=== PATIENT | female | born 1960 | race Caucasian/White ===

== ENCOUNTER → 2016-11-05 | Outpatient (CLI) | payer OTHER | LOC: FIMAGING 13:03 | PROVIDERS: ATTEND Internal Medicine | DX: Z12.31 Encounter for screening mammogram for malignant neoplasm of breast (principal) | CPT/HCPCS: G0202 ==

== ENCOUNTER 2017-07-19 18:39 | Observation (INO) | payer OTHER ==
--- NOTE | 2017-07-19 19:53 | EDPHY ---
H & P Stated Complaint: Fever for the last 3-4day and was seen at urgent care Time Seen by Provider: 07/19/17 19:53 HPI/ROS: CHIEF COMPLAINT: Fever HISTORY OF PRESENT ILLNESS: The patient presents to the ED for evaluation of a low-grade intermittent fever for the past 3-4 days. The patient's only other symptom has been some darkening in the color of her urine. She denies any sore throat, abdominal pain, vomiting, cough, rash or arthralgias. The patient does have a history of autoimmune disease. She does have a history of cardiomyopathy. The patient denies any prior history of liver disease. The patient denies any significant travel outside the [place]. The patient reportedly was seen at urgent care and told that her blood pressure and heart rate were low prompting her visit to the emergency department today. REVIEW OF SYSTEMS: A comprehensive 10 point review of systems is otherwise negative aside from elements mentioned in the history of present illness. Source: Patient Exam Limitations: No limitations - Personal History Current Tetanus/Diphtheria Vaccine: Yes Current Tetanus Diphtheria and Acellular Pertussis (TDAP): Yes - Medical/Surgical History Hx Asthma: Yes Hx Chronic Respiratory Disease: No Hx Diabetes: No Hx Cardiac Disease: Yes Hx Renal Disease: No Hx Cirrhosis: No Hx Alcoholism: No Hx HIV/AIDS: No Hx Splenectomy or Spleen Trauma: No Other PMH: takotsubo's, hypothyroidism - Social History Smoking Status: Never smoked - Physical Exam Exam: General Appearance: Alert, no distress Eyes: Pupils equal and round no pallor or injection ENT, Mouth: Mucous membranes moist Respiratory: There are no retractions, lungs are clear to auscultation Cardiovascular: Regular rate and rhythm Gastrointestinal: Abdomen is soft and nontender, no masses, bowel sounds normal Neurological: A&O, normal motor function, normal sensory exam, normal cranial nerves Skin: Warm and dry, no rashes Musculoskeletal: Neck is supple nontender Extremities: symmetrical, full range of motion Constitutional: Initial Vital Signs Temperature (C) 36.7 C 07/19/17 19:09 Heart Rate 67 07/19/17 19:09 Respiratory Rate 16 07/19/17 19:09 Blood Pressure 113/66 07/19/17 19:09 O2 Sat (%) 96 07/19/17 19:09 O2 Delivery Mode Room Air Allergies/Adverse Reactions: gluten [Gluten] Allergy (Intermediate, Verified 07/19/17 19:12) Abdominal Cramping eggplant Allergy (Intermediate, Uncoded 07/19/17 19:12) Itching Home Medications: Medication Instructions Recorded Calcium Carbonate [Oyster Shell 1,000 mg PO DAILY 09/06/15 Calcium 500 mg (*)] Cholecalciferol Vit D3 [Vitamin D3 2,000 units PO DAILY 09/06/15 (*)] Cyanocobalamin [Vitamin B12 (*)] 1,000 mcg PO DAILY 09/06/15 Diltiazem Cd [Cardizem ER 120 MG 120 mg PO HS 09/06/15 (*)] Estradiol [Estrace Vaginal (*)] 0 gm VAG SUWE 09/06/15 Levothyroxine [Synthroid 137 mcg 137 mcg PO DAILY06 09/06/15 (*)] Multivitamins [Multivitamin (*)] 1 each PO DAILY 09/06/15 [place]-3 Fatty Acids [Fish Oil 1000 1,000 mg PO BID 09/06/15 mg (*)] Pimecrolimus [Elidel] 1 ranjana TP BID 09/06/15 Medical Decision Making ED Course/Re-evaluation: The patient is afebrile, well-appearing, non-hypotensive and not tachycardic. The patient does have evidence of urinary tract infection. She had an IV established. She did receive IV ceftriaxone. Additionally, the patient has renal insufficiency with a creatinine of 1.9. The patient did received 2 L of normal saline. I recheck her creatinine and was 1.8. I re-evaluated the patient several times. At 11:00 p.m. She continues to feel somewhat fatigued in generally weak. We have not noticed a fever in the emergency department. She has not had hypotension or tachycardia. In the setting of her urinary tract infection and acute renal failure I do feel she should be admitted to the hospital for observation and fluid rehydration this evening. I did obtain blood cultures on the patient after she received IV ceftriaxone once the decision to admit her to the hospital was made. Consultation was made with the hospitalist service at 11:00 p.m.. She will be admitted for observation this evening. I discussed the case with Dr. Dutta who will admit the patient. Differential Diagnosis: Differential diagnosis considered includes viral syndrome, urinary tract infection, dehydration, renal failure, metabolic abnormality - Data Points Laboratory Results: Laboratory Results 07/19/17 21:00 07/19/17 20:37 07/19/17 07/19/17 07/19/17 21:00 20:46 20:37 WBC 12.97 10^3/uL H 10^3/uL (3.80-9.50) RBC 4.08 10^6/uL L 10^6/uL (4.18-5.33) Hgb 12.4 g/dL L g/dL (12.6-16.3) Hct 36.2 % L % (38.0-47.0) MCV 88.7 fL fL (81.5-99.8) MCH 30.4 pg pg (27.9-34.1) MCHC 34.3 g/dL g/dL (32.4-36.7) RDW 13.7 % % (11.5-15.2) Plt Count 205 10^3/uL 10^3/uL (150-400) MPV 9.9 fL fL (8.7-11.7) Neut % (Auto) 80.9 % H % (39.3-74.2) Lymph % (Auto) 7.6 % L % (15.0-45.0) [place] % (Auto) 10.6 % % (4.5-13.0) Eos % (Auto) 0.1 % L % (0.6-7.6) Baso % (Auto) 0.3 % % (0.3-1.7) Nucleat RBC Rel Count 0.0 % % (0.0-0.2) Absolute Neuts (auto) 10.49 10^3/uL H 10^3/uL (1.70-6.50) Absolute Lymphs (auto) 0.98 10^3/uL L 10^3/uL (1.00-3.00) Absolute Monos (auto) 1.38 10^3/uL H 10^3/uL (0.30-0.80) Absolute Eos (auto) 0.01 10^3/uL L 10^3/uL (0.03-0.40) Absolute Basos (auto) 0.04 10^3/uL 10^3/uL (0.02-0.10) Absolute Nucleated RBC 0.00 10^3/uL 10^3/uL (0-0.01) Immature Gran % 0.5 % % (0.0-1.1) Immature Gran # 0.07 10^3/uL 10^3/uL (0.00-0.10) Sodium 132 mEq/L L mEq/L (135-145) Potassium 4.2 mEq/L mEq/L (3.5-5.2) Chloride 97 mEq/L mEq/L (97-110) Carbon Dioxide 20 mEq/l L mEq/l (22-31) Anion Gap 15 mEq/L mEq/L (8-16) BUN 25 mg/dL H mg/dL (7-23) Creatinine 1.9 mg/dL H mg/dL (0.6-1.0) Estimated GFR 27 Glucose 96 mg/dL mg/dL (70-100) Calcium 9.1 mg/dL mg/dL (8.5-10.4) Total Bilirubin 1.6 mg/dL H mg/dL (0.1-1.4) Conjugated Bilirubin 0.5 mg/dL mg/dL (0.0-0.5) Unconjugated Bilirubin 1.1 mg/dL mg/dL (0.0-1.1) AST 47 IU/L H IU/L (14-46) ALT 62 IU/L H IU/L (9-52) Alkaline Phosphatase 88 IU/L IU/L (38-126) Total Protein 6.9 g/dL g/dL (6.3-8.2) Albumin 3.5 g/dL g/dL (3.5-5.0) Urine Color STEVEN Urine Appearance TURBID Urine pH 5.0 (5.0-7.5) Ur Specific [place] 1.016 (1.002-1.030) Urine Protein 2+ H (NEGATIVE) Urine Ketones NEGATIVE (NEGATIVE) Urine Blood 2+ H (NEGATIVE) Urine Nitrate NEGATIVE (NEGATIVE) Urine Bilirubin NEGATIVE (NEGATIVE) Urine Urobilinogen NEGATIVE EU EU (0.2-1.0) Ur Leukocyte Esterase 3+ H (NEGATIVE) Urine RBC 50-182 /hpf H /hpf (0-3) Urine WBC 50-182 /hpf H /hpf (0-3) Ur Epithelial Cells 1+ /lpf /lpf (NONE-1+) Urine Bacteria 4+ /hpf H /hpf (NONE SEEN) Urine Mucus 1+ /lpf /lpf (NONE-1+) Urine Glucose NEGATIVE (NEGATIVE) 07/19/17 20:37 WBC REJ RBC Not Reported Hgb Not Reported Hct Not Reported MCV Not Reported MCH Not Reported MCHC Not Reported RDW Not Reported Plt Count Not Reported MPV Not Reported Neut % (Auto) Not Reported Lymph % (Auto) Not Reported [place] % (Auto) Not Reported Eos % (Auto) Not Reported Baso % (Auto) Not Reported Nucleat RBC Rel Count Not Reported Absolute Neuts (auto) Not Reported Absolute Lymphs (auto) Not Reported Absolute Monos (auto) Not Reported Absolute Eos (auto) Not Reported Absolute Basos (auto) Not Reported Absolute Nucleated RBC Not Reported Immature Gran % Not Reported Immature Gran # Not Reported Sodium Potassium Chloride Carbon Dioxide Anion Gap BUN Creatinine Estimated GFR Glucose Calcium Total Bilirubin Conjugated Bilirubin Unconjugated Bilirubin AST ALT Alkaline Phosphatase Total Protein Albumin Urine Color Urine Appearance Urine pH Ur Specific [place] Urine Protein Urine Ketones Urine Blood Urine Nitrate Urine Bilirubin Urine Urobilinogen Ur Leukocyte Esterase Urine RBC Urine WBC Ur Epithelial Cells Urine Bacteria Urine Mucus Urine Glucose Medications Given: Discontinued Medications Acetaminophen (Tylenol) 1,000 mg PO EDNOW ONE Stop: 07/19/17 22:22 Last Admin: 07/19/17 22:22 Dose: 1,000 mg Sodium Chloride (Ns) 1,000 mls @ 0 mls/hr IV EDNOW ONE; Wide Open PRN Reason: Protocol Stop: 07/19/17 20:09 Last Admin: 07/19/17 21:22 Dose: 1,000 mls Ceftriaxone Sodium 2 gm/ (Sterile Water) 20 mls @ 300 mls/hr IV EDNOW ONE PRN Reason: Protocol Stop: 07/19/17 21:33 Last Admin: 07/19/17 21:52 Dose: 20 mls Departure - Departure Disposition: [facility] Inpatient Acute Clinical Impression: Dehydration, Renal failure, Cystitis, Fever Condition: Good Referrals: Angelica James MD [Primary Care Provider] - As per Instructions
[2017-07-19] MEDS ORDERED: NS 1,000 ML IV ONE (20:08)
--- NOTE | 2017-07-19 20:25 | CPEKG ---
Heart Rate: 54 RR Interval: 1111 P-R Interval: 200 QRSD Interval: 116 QT Interval: 464 QTC Interval: 440 P [place]: 5 QRS [place]: -8 T Wave [place]: 55 EKG Severity - ABNORMAL ECG - EKG Impression: SINUS RHYTHM EKG Impression: NONSPECIFIC INTRAVENTRICULAR CONDUCTION DELAY Electronically Signed By: Rico Cooper 20-Jul-2017 00:14:17
[2017-07-19 21:07] LABS: PLATELET COUNT 205 10^3/uL (150-400)
[2017-07-19] MEDS ORDERED: cefTRIAXone 2 GM in STERILE WATER INJ 20 ML IV ONE (21:30)
[2017-07-19] MEDS ORDERED: ACETAMINOPHEN 500 MG TAB ONE (21:57)
[2017-07-19] MEDS ORDERED: ACETAMINOPHEN 500 MG TAB PO ONE (22:21)
[2017-07-19] MEDS ORDERED: LORazepam 0.5 MG TAB PO PRN (23:41)
[2017-07-19] MEDS ORDERED: ONDANSETRON 4 MG/2 ML VIAL IVP PRN (23:41)
[2017-07-19] MEDS ORDERED: diphenhydrAMINE 25 MG CAP PO PRN (23:41)
[2017-07-19] MEDS ORDERED: HYDROCODONE/APAP 5/325 TAB PO PRN (23:41)
[2017-07-20 05:39] LABS: PLATELET COUNT 190 10^3/uL (150-400)
[2017-07-20] MEDS: ACETAMINOPHEN 325 MG TAB PO PRN ×2 (07:45→14:07)
[2017-07-20] MEDS: NS 1,000 ML IV SCH ×2 (07:48→16:14)
--- NOTE | 2017-07-20 08:39 | PDGENHP ---
History and Physical - Chief Complaint Fevers chills and rigors, right flank pain - History of Present Illness Source-patient provides history appears reliable. EMR was reviewed and case discussed with ED provider. HPI-this is a very pleasant 57-year-old female with past medical history significant for RA, Elio's thyroiditis, asthma, tox Sri bow cardiomyopathy , HLD, hypertension, celiac disease and CKD with a baseline creatinine of 1.1 who presents to the emergency department today with complaints of several days of progressive fevers chills and now rigors along with developing right flank pain that radiates to her abdomen. Patient reports that her symptoms started approximately 6 days ago. She reports 2 days ago she developed some nausea vomiting without any hematemesis. She denies any melena hematochezia. Since her admission patient has developed some diarrhea. She denies any recent sick contacts. She denies any cough sore throat. She does report some congestion and acutely worsened her chronic rhinorrhea. Patient is not on any immuno modulators or suppressants for her RA. Patient describes her flank pain abdominal pain as intermittent cramping and worse with movement. Patient without a recent history of UTIs last being in her 20s with acute cystitis type symptoms. Patient denies any hematuria. Patient presented earlier to the urgent care center where she was referred to the ED. Patient was noted to be febrile, tachycardic and with concern was for sepsis. Upon arrival to the ED patient's vital signs were within normal limits and she was afebrile. History Information - Allergies/Home Medication List Allergies/Adverse Reactions: gluten [Gluten] Allergy (Intermediate, Verified 07/19/17 19:12) Abdominal Cramping eggplant Allergy (Intermediate, Uncoded 07/19/17 19:12) Itching Home Medications: Calcium Carbonate [Oyster Shell Calcium 500 mg (*)] 1,000 mg PO DAILY 09/06/15 [ Last Taken Unknown] Cholecalciferol Vit D3 [Vitamin D3 (*)] 2,000 units PO DAILY 09/06/15 [Last Taken Unknown] Cyanocobalamin [Vitamin B12 (*)] 1,000 mcg PO DAILY 09/06/15 [Last Taken Unknown ] Diltiazem Cd [Cardizem ER 120 MG (*)] 120 mg PO HS 09/06/15 [Last Taken 09/05/15 ] Estradiol [Estrace Vaginal (*)] 1 ranjana VAG SUWE 09/06/15 [Last Taken 09/04/15] Multivitamins [Multivitamin (*)] 1 each PO DAILY 09/06/15 [Last Taken Unknown] [place]-3 Fatty Acids [Fish Oil 1000 mg (*)] 1,000 mg PO BID 09/06/15 [Last Taken Unknown] Pimecrolimus [Elidel] 1 ranjana TP BID 09/06/15 [Last Taken 09/05/15] Levothyroxine [Synthroid 125 mcg (*)] 125 mcg PO DAILY06 07/20/17 [Last Taken Unknown] Pravastatin Sodium 20 mg PO MWF 07/20/17 [Last Taken Unknown] I have personally reviewed and updated: family history, medical history, social history, surgical history - Past Medical History Additional medical history: RA, Elio's thyroiditis, asthma, Takotsubo's cardiomyopathy, HLD, a height HTN, celiac disease, CKD with creatinine baseline 1.1, endometriosis - Surgical History Additional surgical history: Right wrist repair, right oophorectomy - Family History Additional family history: Diabetes, HTN. Patient brother with a history of transplant liver and kidneys related to HCV) - Social History Smoking Status: Never smoked Alcohol Use: Rarely Drug Use: None Additional social history: Patient lives alone. Cor status is full. Review of Systems Review of Systems: ROS: 10pt was reviewed & negative except for what was stated in HPI & below ( Negative except as noted above.) Physical Exam Physical Exam: Selected Entries 07/19/17 19:09 Blood Pressure Automatic Method Heart Rate 67 Respiratory 16 Rate O2 Sat (%) 96 Temperature (C) 36.7 C Blood Pressure 113/66 Mean Arterial 81 Pressure (MAP) O2 Delivery Room Air Mode Temperature Oral Source Temp Pulse Resp BP Pulse Ox 39.1 C H 78 16 107/73 92 07/20/17 07:27 07/20/17 07:27 07/20/17 07:27 07/20/17 07:27 07/20/17 07:27 Constitutional: uncomfortable (With movement), other (NAD. Patient is lying quietly in bed. She does appear acutely ill but nontoxic. Fatigued.) Eyes: PERRL, anicteric sclera, EOMI Ears, Nose, Mouth, Throat: no oral mucosal ulcers, dry mucous membranes, other ( Nasal congestion), No poor dentition Cardiovascular: regular rate and rhythym, no murmur, rub, or gallop, No systolic murmur, No edema Peripheral Pulses: 2+: dorsalis-pedis (R), dorsalis-pedis (L) Respiratory: no respiratory distress, no rales or rhonchi, clear to auscultation , reduced air movement Gastrointestinal: normoactive bowel sounds, soft, non-tender abdomen, no palpable masses, tenderness (Right mid abdomen), No guarding, No rebound, No distension Genitourinary: no bladder tenderness, other (Right CVA tenderness.), No bruce in urethra Skin: warm, normal color, no rashes or abrasions, other (Patient appears slightly flushed), No rash Musculoskeletal: full muscle strength, other (Moves all extremities.), No generalized weakness Neurologic: AAOx3, sensation intact bilaterally, other (Nonfocal exam.), No weakness, No facial droop Psychiatric: interacting appropriately, not encephalopathic, thought process linear, anxious, other (Pleasant and cooperative.), No depressed Lab Data & Imaging Review 07/20/17 05:31 07/20/17 05:31 WBC 11.33 10^3/uL (3.80-9.50) H 07/20/17 05:31 RBC 3.58 10^6/uL (4.18-5.33) L 07/20/17 05:31 Hgb 10.8 g/dL (12.6-16.3) L 07/20/17 05:31 Hct 31.0 % (38.0-47.0) L 07/20/17 05:31 MCV 86.6 fL (81.5-99.8) 07/20/17 05:31 MCH 30.2 pg (27.9-34.1) 07/20/17 05:31 MCHC 34.8 g/dL (32.4-36.7) 07/20/17 05:31 RDW 13.5 % (11.5-15.2) 07/20/17 05:31 Plt Count 190 10^3/uL (150-400) 07/20/17 05:31 MPV 10.0 fL (8.7-11.7) 07/20/17 05:31 Neut % (Auto) 82.6 % (39.3-74.2) H 07/20/17 05:31 Lymph % (Auto) 5.2 % (15.0-45.0) L 07/20/17 05:31 [place] % (Auto) 11.3 % (4.5-13.0) 07/20/17 05:31 Eos % (Auto) 0.2 % (0.6-7.6) L 07/20/17 05:31 Baso % (Auto) 0.3 % (0.3-1.7) 07/20/17 05:31 Nucleat RBC Rel Count 0.0 % (0.0-0.2) 07/20/17 05:31 Absolute Neuts (auto) 9.37 10^3/uL (1.70-6.50) H 07/20/17 05:31 Absolute Lymphs (auto) 0.59 10^3/uL (1.00-3.00) L 07/20/17 05:31 Absolute Monos (auto) 1.28 10^3/uL (0.30-0.80) H 07/20/17 05:31 Absolute Eos (auto) 0.02 10^3/uL (0.03-0.40) L 07/20/17 05:31 Absolute Basos (auto) 0.03 10^3/uL (0.02-0.10) 07/20/17 05:31 Absolute Nucleated RBC 0.00 10^3/uL (0-0.01) 07/20/17 05:31 Immature Gran % 0.4 % (0.0-1.1) 07/20/17 05:31 Immature Gran # 0.04 10^3/uL (0.00-0.10) 07/20/17 05:31 Sodium 133 mEq/L (135-145) L 07/20/17 05:31 Potassium 3.8 mEq/L (3.5-5.2) 07/20/17 05:31 Chloride 102 mEq/L (97-110) 07/20/17 05:31 Carbon Dioxide 21 mEq/l (22-31) L 07/20/17 05:31 Anion Gap 10 mEq/L (8-16) 07/20/17 05:31 BUN 22 mg/dL (7-23) 07/20/17 05:31 Creatinine 1.5 mg/dL (0.6-1.0) H 07/20/17 05:31 Estimated GFR 36 07/20/17 05:31 Glucose 104 mg/dL (70-100) H 07/20/17 05:31 Calcium 8.4 mg/dL (8.5-10.4) L 07/20/17 05:31 Magnesium 2.2 mg/dL (1.6-2.3) 07/20/17 05:31 Total Bilirubin 1.6 mg/dL (0.1-1.4) H 07/19/17 20:37 Conjugated Bilirubin 0.5 mg/dL (0.0-0.5) 07/19/17 20:37 Unconjugated Bilirubin 1.1 mg/dL (0.0-1.1) 07/19/17 20:37 AST 47 IU/L (14-46) H 07/19/17 20:37 ALT 62 IU/L (9-52) H 07/19/17 20:37 Alkaline Phosphatase 88 IU/L (38-126) 07/19/17 20:37 Total Protein 6.9 g/dL (6.3-8.2) 07/19/17 20:37 Albumin 3.5 g/dL (3.5-5.0) 07/19/17 20:37 Urine Color STEVEN 07/19/17 20:46 Urine Appearance TURBID 07/19/17 20:46 Urine pH 5.0 (5.0-7.5) 07/19/17 20:46 Ur Specific [place] 1.016 (1.002-1.030) 07/19/17 20:46 Urine Protein 2+ (NEGATIVE) H 07/19/17 20:46 Urine Ketones NEGATIVE (NEGATIVE) 07/19/17 20:46 Urine Blood 2+ (NEGATIVE) H 07/19/17 20:46 Urine Nitrate NEGATIVE (NEGATIVE) 07/19/17 20:46 Urine Bilirubin NEGATIVE (NEGATIVE) 07/19/17 20:46 Urine Urobilinogen NEGATIVE EU (0.2-1.0) 07/19/17 20:46 Ur Leukocyte Esterase 3+ (NEGATIVE) H 07/19/17 20:46 Urine RBC 50-182 /hpf (0-3) H 07/19/17 20:46 Urine WBC 50-182 /hpf (0-3) H 07/19/17 20:46 Ur Epithelial Cells 1+ /lpf (NONE-1+) 07/19/17 20:46 Urine Bacteria 4+ /hpf (NONE SEEN) H 07/19/17 20:46 Urine Mucus 1+ /lpf (NONE-1+) 07/19/17 20:46 Urine Glucose NEGATIVE (NEGATIVE) 07/19/17 20:46 EKG additional interpertation: NSR in the 50s. No acute ST changes. QTC is 440. Assessment & Plan Assessment: Acute Pyelo nephritis - UA is quite abnormal. Patient was started on Rocephin. She did not meet any SIRS criteria upon arrival to the emergency department blood cultures were obtained after Rocephin had been infusing. Urine culture is pending. Patient is not on any immunosuppressive agents. Hyponatremia - repeat sodium shows that patient's sodium is slowly increasing. This could be related to hypovolemia versus SIADH. Continue to replace IV fluids and repeated BMP. If no further improvement consider urine studies and further evaluation and/or check a TSH. Patient is not on any diuretics. Dehydration (Acute) - improved. Patient received several L of IV fluid in the emergency department. Hypo tension-patient reports that her normal blood pressures are low 100s to 110s SBP but currently lower than her usual. she also endorse some orthostatic sx. continue with IVF hydration. Fever, chills/rigors (Acute) - patient has remained afebrile since arrival to the floor. Again blood cultures were obtained after Rocephin infuse. She does not meet SIRS criteria at this time. Renal failure (Acute) - acute kidney injury on CKD stage 3. Patient reports her baseline creatinine is 1.1. Creatinine is improving slowly with IV fluid replacement. Anemia likely of chronic disease. Patient without any evidence of active gross bleeding will continue to monitor. Chronic Medical Issues HTN - BP is as noted above HLD Asthma Takotsubo cardiomyopathy Celiac disease FEN - IV fluids as noted above. Electrolytes will be monitored and replaced if needed. Diet as tolerated gluten free. PPX-SCDs. Mobilize. Lovenox if patient should stay additional day but anticipate short hospital stay at this time. Cor status-full. Disposition-patient has been admitted to observation status at this time pending symptom improvement with treatment and follow-up of cultures for appropriate antibiotic at discharge.
[2017-07-20] MEDS ORDERED: ENOXAPARIN 30 MG/0.3 ML SYR SC SCH (09:00)
--- NOTE | 2017-07-20 13:32 | HOSPPROG ---
Hospitalist Progress Note Assessment/Plan: Patient is a 57 y.o female who presented with fevers, chills, rigors, right flank pain. She was admitted earlier this morning by Dr Dutta, came by to f/u with here. *acute pyelonephritis -urine cx pending -Rocephine *Hyponatremia -follow *anemia -repeat labs in a.m. *Hypotension -bp cont to be low this afternoon -her baseline is low, but says she is lower than her baseline -continue iv fluids overnight *fevers, chills, rigors -better w Tylenol *renal failure -follow *HTN -hypotensive; will place parameters as when to hold her calcium federico *HLD -statin Plan: f/u with urine cx in a.m. >30 minutes with f/u care Subjective: Alysha is still having fevers and has some flank pain. Objective: Vital Signs Temp Pulse Resp BP Pulse Ox 37.0 C 66 16 82/51 L 91 L 07/20/17 11:14 07/20/17 11:14 07/20/17 11:14 07/20/17 11:14 07/20/17 11:14 Laboratory Results 07/20/17 05:31 07/20/17 05:31 07/19/17 07/20/17 07/21/17 05:59 05:59 05:59 Intake Total 1500 Balance 1500 - Physical Exam Constitutional: no apparent distress, appears nourished, No not in pain Eyes: PERRL Ears, Nose, Mouth, Throat: hearing normal Cardiovascular: regular rate and rhythym Respiratory: no respiratory distress Gastrointestinal: normoactive bowel sounds Skin: warm, No normal color (pale) Musculoskeletal: full muscle strength, no joint effusions Psychiatric: interacting appropriately ICD10 Worksheet Patient Problems: Problems Problem Status Onset Cystitis Acute Dehydration Acute Fever Acute Renal failure Acute Chest pain Acute
[2017-07-20] MEDS ORDERED: PIMECROLIMUS 1% 30 GM CRTUBE TP SCH (21:00)
[2017-07-20] MEDS ORDERED: DILTIAZEM CD 120 MG CAP PO SCH (21:00)
[2017-07-20] MEDS: IBUPROFEN 600 MG TAB PO PRN (21:51)
[2017-07-20] MEDS: OMEGA-3 FATTY ACIDS 1,000 MG CAP PO SCH (21:51)
[2017-07-20] MEDS: PIMECROLIMUS 1% 30 GM CRTUBE TP SCH (22:12)
[2017-07-21] MEDS: NS 1,000 ML IV SCH ×2 (00:24→08:21)
[2017-07-21 05:53] LABS: PLATELET COUNT 246 10^3/uL (150-400)
[2017-07-21] MEDS ORDERED: LEVOTHYROXINE 125 MCG TAB PO SCH (06:00)
[2017-07-21] MEDS: IBUPROFEN 600 MG TAB PO PRN (07:48)
[2017-07-21] MEDS ORDERED: PRAVASTATIN SODIUM 20 MG TAB PO SCH (08:00)
[2017-07-21] MEDS: OMEGA-3 FATTY ACIDS 1,000 MG CAP PO SCH (08:06)
[2017-07-21] MEDS: PIMECROLIMUS 1% 30 GM CRTUBE TP SCH (08:10)
[2017-07-21] MEDS ORDERED: CYANO/VITAMIN B12 1000 MCG TAB PO SCH (09:00)
[2017-07-21] MEDS ORDERED: ENOXAPARIN 40 MG/0.4 ML SYR SC SCH (09:00)
[2017-07-21] MEDS ORDERED: MULTIVITAMINS 1 EACH TAB PO SCH (09:00)
[2017-07-21] MEDS ORDERED: CALCIUM CARBONATE 500 MG TAB PO SCH (09:00)
[2017-07-21] MEDS ORDERED: CHOLECALCIFEROL VIT D3 1,000 UNITS TAB PO SCH (09:00)
--- NOTE | 2017-07-21 12:51 | HOSPPROG ---
Hospitalist Progress Note Assessment/Plan: Patient is a 57 y.o female who presented with fevers, chills, rigors, right flank pain. *acute pyelonephritis -Rocephi-urine cx shows e coli *Hyponatremia -resolved *anemia -repeat labs in a.m. *Hypotension -better today *fevers, chills, rigors -better w Tylenol *renal failure -follow *HTN -stable *HLD -statin Plan: dc with f/u with Dr James Objective: Vital Signs Temp Pulse Resp BP Pulse Ox 36.2 C 62 16 101/64 92 07/21/17 07:08 07/21/17 07:08 07/21/17 07:08 07/21/17 07:08 07/21/17 07:08 Laboratory Results 07/21/17 05:02 07/21/17 05:02 07/20/17 07/21/17 07/22/17 05:59 05:59 05:59 Intake Total 1500 1500 250 Output Total 200 Balance 1500 1500 50 - Physical Exam Constitutional: no apparent distress, appears nourished, not in pain Eyes: PERRL Ears, Nose, Mouth, Throat: hearing normal Cardiovascular: regular rate and rhythym Respiratory: no respiratory distress Skin: warm Musculoskeletal: full muscle strength, no muscle tenderness Neurologic: AAOx3 Psychiatric: interacting appropriately, not anxious ICD10 Worksheet Patient Problems: Problems Problem Status Onset Cystitis Acute Dehydration Acute Fever Acute Renal failure Acute Chest pain Acute
--- NOTE | 2017-07-21 13:23 | GDS ---
[f rep st] DISCHARGE SUMMARY DISCHARGE DIAGNOSES: 1. Acute pyelonephritis. 2. Hyponatremia. 3. Hypotension. 4. Anemia. 5. Fever with chills and rigors. 6. Renal failure. 7. Hypertension with frequent bouts of hypotension. 8. Hyperlipidemia. HISTORY OF PRESENT ILLNESS: Briefly, Denisha is a 57-year-old female, with a history of takotsubo cardiomyopathy, RA, and Elio's thyroiditis, who presented earlier to urgent care, where she was referred to the emergency department. She was noted to be febrile, tachycardic, and with concern of sepsis. On arrival here, she was much improved. She had a urinalysis and started on ceftriaxone. B lood cultures were obtained after Rocephin had been infusing. She is not on any immunosuppressive ag ents. She improved throughout her stay. Fevers have resolved. Her urine culture grew out E coli, a s well as strep, which is likely a skin contaminant. She will be discharged on Levaquin and follow u p with Dr. James. HOSPITAL COURSE: 1. Acute pyelonephritis, much improved. Will be discharged home on Levaquin. 2. Hyponatremia, improved. 3. Anemia. Further followup with Dr. James. 4. Hypotension. She said she her blood pressure runs low and is asymptomatic. 5. Fever, chills and rigors, resolved. 6. Renal failure, stable. 7. Hypertension. She is on a calcium channel federico for her takotsubo cardiomyopathy. She knows w riri to hold it at home. 8. Hyperlipidemia, on statin therapy. DISCHARGE CONDITION: Stable. VITAL SIGNS: Blood pressure is 101/64, heart rate is 62, respiratory rate is 16, O2 sats on room air 92%, temperature is 36.2 Celsius. MEDICATIONS AT DISCHARGE: Please see the EMR. DISCHARGE INSTRUCTIONS: 1. Followup with Dr. James. Recommend if she develops any fever or chills, return to the ER. 2. To take it easy while on Levaquin; it can affect her tendons, especially the Achilles tendon. In addition, I will call and let Dr. James know of the patient's admission and discharge. /[id number]/MODL
[2017-07-21 13:33] VITALS: BP 101/64; PULSE 62; RESP 16; TEMP 97.2; O2SAT 92
--- NOTE | 2017-07-21 14:48 | ASMTCMCOM ---
CM Note CM Note Notes: Spoke w/RN, anticipate will dc home independent when medically stable. CM available for any changes. DC Plan: Independent Date Signed: 07/21/2017 02:47 PM Electronically Signed By:Dayami Hayden RN
[2017-07-21] MEDS ORDERED: ESTRADIOL 42.5 GM CRTUBE VG SCH ×2 (15:09→15:16)
== END 2017-07-21 14:30 | disposition home or self-care (01) ==
LOC: F3E 07-20 00:20
PROVIDERS: ADMIT Family Medicine; ATTEND Internal Medicine
DX: N10 Acute pyelonephritis (principal); N17.9 Acute kidney failure, unspecified; N18.3 Chronic kidney disease, stage 3 (moderate); E86.0 Dehydration; E87.1 Hypo-osmolality and hyponatremia; I95.9 Hypotension, unspecified; D64.9 Anemia, unspecified; R50.9 Fever, unspecified; I12.9 Hypertensive chronic kidney disease with stage 1 through stage 4 chronic kidney disease, or unspecified chronic kidney disease; E78.5 Hyperlipidemia, unspecified; I51.81 Takotsubo syndrome
CPT/HCPCS: 93005; 96361; 96374; 99285; G0378; J0696; J1650; J2405

== ENCOUNTER → 2017-11-08 | Outpatient (CLI) | payer OTHER | LOC: FIMAGING 13:44 | PROVIDERS: ATTEND Internal Medicine | DX: Z12.31 Encounter for screening mammogram for malignant neoplasm of breast (principal) ==

== ENCOUNTER → 2018-11-09 | Outpatient (CLI) | payer OTHER | LOC: FIMAGING 14:56 ==